=== PATIENT | male | born 1990 | race Two or more races ===

== ENCOUNTER 2024-09-15 15:23 | Inpatient (IN) | payer OTHER ==
[2024-09-15 15:41] VITALS: BMI 29.4
[2024-09-15] MEDS: SODIUM CHLORIDE 0.9% 500 ML INFUS.BAG IV ONE (16:58)
[2024-09-15 17:27] LABS: URINE APPEARANCE CLEAR; URINE BILIRUBIN 3+ (NEGATIVE); URINE COLOR DK YELLOW; URINE GLUCOSE (UA) NEGATIVE (NEGATIVE); URINE KETONE NEGATIVE (NEGATIVE); URINE LEUK ESTERASE NEGATIVE (NEGATIVE); URINE NITRITE NEGATIVE (NEGATIVE); URINE PROTEIN TRACE (NEGATIVE); URINE UROBILINOGEN 0.2 mg/dL (0.2-1.0)
[2024-09-15 17:37] LABS: ABSOLUTE IMMATURE GRANULOCYTES 0.02 x10^3/uL (0.0-0.031); BASOPHILS # 0.08 x10^3/uL (0.01-0.08); EOSINOPHIL % 3.2 % (0.8-7.0); EOSINOPHILS # 0.23 x10^3/uL (0.04-0.54); HEMATOCRIT 41.9 % (40.1-51.0); HEMOGLOBIN 12.5 g/dL (13.7-17.5); MCHC 29.8 g/dl (32.3-36.5); MEAN CELL VOLUME 66.6 fl (79.0-92.2); MEAN PLT VOLUME 11.7 fl (9.4-12.4); MONOCYTE # 0.86 x10^3/uL (0.30-0.82); MONOCYTE % 11.8 % (5.3-12.2); PLATELET COUNT # 308 x10^3/uL (163-337); RDW 16.3 % (12.0-15.6)
[2024-09-15 17:55] LABS: INR 1.04 (0.83-1.09); PROTHROMBIN TIME (PATIENT) 11.4 SEC (9.7-13.0)
[2024-09-15 17:58] LABS: ACTIVATED PTT 41.3 SECONDS (25.2-36.5)
[2024-09-15 18:15] LABS: POTASSIUM 3.9 mmol/L (3.5-5.1)
[2024-09-15 18:18] LABS: ALBUMIN 3.7 g/dl (3.4-5.0); BLOOD UREA NITROGEN 9.6 mg/dL (7-18)
[2024-09-15 18:21] LABS: CREATININE 1.1 mg/dL (0.55-1.3)
[2024-09-15 18:22] LABS: BILIRUBIN,TOTAL 9.4 mg/dL (0.2-1)
[2024-09-15 18:24] LABS: TOT PROT 7.8 g/dl (6.4-8.2)
[2024-09-15 18:56] LABS: HCV DIAGNOSTIC IN-HOUSE W/RFLX NON-REACTIVE (NONREACTIVE); HIV INTERPRETATION NEGATIVE (NEGATIVE)
[2024-09-15 20:34] LABS: BILIRUBIN,DIRECT 7.6 mg/dL (0.0-0.2)
[2024-09-15] MEDS: diphenhydrAMINE HCL 25 MG CAPSULE (FP) PO PRN (23:30)
[2024-09-15] MEDS: SODIUM CHLORIDE 1,000 ML IV SCH (23:42)
[2024-09-16] MEDS: ACETAMINOPHEN 1000 MG/100 ML BAG IVPB PRN (01:14)
[2024-09-16] MEDS: BENZOCAINE/MENTH/CETYLPYRD CL 1 EACH LOZENGE MM PRN (01:15)
[2024-09-16] MEDS: MOMETASONE FUROATE 220 MCG/IH INHALER IH SCH (09:08)
[2024-09-16 09:27] LABS: HEMATOCRIT 37.6 % (40.1-51.0); HEMOGLOBIN 11.3 g/dL (13.7-17.5); MCHC 30.1 g/dl (32.3-36.5); MEAN CELL VOLUME 66.8 fl (79.0-92.2); PLATELET COUNT # 271 x10^3/uL (163-337); RDW 15.9 % (12.0-15.6)
[2024-09-16 09:43] LABS: POTASSIUM 3.8 mmol/L (3.5-5.1)
[2024-09-16 09:46] LABS: BLOOD UREA NITROGEN 9.3 mg/dL (7-18); CALCIUM 8.5 mg/dL (8.5-10.1); MAGNESIUM 2.1 mg/dL (1.8-2.4)
[2024-09-16 09:49] LABS: BILIRUBIN,DIRECT 7.4 mg/dL (0.0-0.2); CREATININE 1.1 mg/dL (0.55-1.3); PHOSPHOROUS 3.3 mg/dL (2.5-4.9)
[2024-09-16 09:50] LABS: BILIRUBIN,TOTAL 8.7 mg/dL (0.2-1)
[2024-09-16 09:51] LABS: TOT PROT 6.5 g/dl (6.4-8.2)
[2024-09-16] MEDS: PANTOPRAZOLE 40 MG TABLET PO SCH (10:33)
[2024-09-16] MEDS ORDERED: ONDANSETRON 4 MG/2 ML VIAL IVPUSH PRN (13:26)
[2024-09-16] MEDS ORDERED: PROMETHAZINE HCL 25 MG/1 ML VIAL IVPB PRN (13:26)
[2024-09-16] MEDS ORDERED: MIDAZOLAM HCL 2 MG/2 ML SINGLE DOSE VIAL ONE (13:32)
[2024-09-16] MEDS ORDERED: ACETAMINOPHEN INJECTION 100 ML ONE (13:34)
[2024-09-16] MEDS: INDOMETHACIN 50 MG RECTAL SUPPOSITORY PR ONE (14:02)
[2024-09-16] MEDS ORDERED: ONDANSETRON 4 MG/2 ML VIAL ONE (17:07)
[2024-09-16] MEDS: LACTATED RINGERS SOLUTION 1,000 ML IV SCH ×2 (17:21→19:41)
[2024-09-16] MEDS ORDERED: ONDANSETRON 8 MG TABLET (FP) PO PRN (19:39)
[2024-09-16] MEDS: SIMETHICONE 80 MG TAB.CHEW (FP) PO PRN (20:02)
[2024-09-16] MEDS: ONDANSETRON *ODT* 4 MG TABLET SL PRN (20:03)
[2024-09-16] MEDS: KETOROLAC TROMETHAMINE 15 MG/ML VIAL IVPUSH ONE (20:03)
[2024-09-16] MEDS: MONTELUKAST NA 10 MG TABLET PO SCH (21:29)
[2024-09-16] MEDS: BENZONATATE 200 MG CAPSULE PO PRN (23:50)
[2024-09-17] MEDS: traMADol HCL 50 MG TABLET PO ONE
[2024-09-17] MEDS ORDERED: morphine CARPU-JECT 2 MG/1 ML DISP.SYRIN IVPUSH PRN (08:43)
[2024-09-17 09:54] LABS: HEMATOCRIT 38.2 % (40.1-51.0); HEMOGLOBIN 11.5 g/dL (13.7-17.5); MCHC 30.1 g/dl (32.3-36.5); MEAN CELL VOLUME 66.2 fl (79.0-92.2); PLATELET COUNT # 320 x10^3/uL (163-337); RDW 15.8 % (12.0-15.6)
[2024-09-17 10:33] LABS: ALBUMIN 3.1 g/dl (3.4-5.0); CALCIUM 9.5 mg/dL (8.5-10.1)
[2024-09-17 10:36] LABS: CREATININE 0.9 mg/dL (0.55-1.3); PHOSPHOROUS 3.6 mg/dL (2.5-4.9)
[2024-09-17 10:38] LABS: TOT PROT 6.8 g/dl (6.4-8.2)
[2024-09-17 10:43] LABS: BLOOD UREA NITROGEN 9.2 mg/dL (7-18)
[2024-09-17 10:51] LABS: BILIRUBIN,TOTAL 3.3 mg/dL (0.2-1)
[2024-09-17] MEDS: MAG HYDROX/AL HYDROX/SIMETH 30 ML UNIT-DOSE CUP PO PRN (11:36)
[2024-09-17] MEDS: KETOROLAC TROMETHAMINE 15 MG/ML VIAL IVPUSH PRN (13:00)
[2024-09-17] MEDS: guaiFENesin 600 MG TABLET.ER (FP) PO SCH (17:32)
[2024-09-17] MEDS: ACETAMINOPHEN 500 MG TABLET (FP) PO PRN (19:25)
[2024-09-17] MEDS: SIMETHICONE 80 MG TAB.CHEW (FP) PO ONE (20:21)
[2024-09-18] MEDS: IBUPROFEN 400 MG TABLET (FP) PO ONE (00:46)
[2024-09-18 09:32] LABS: HEMATOCRIT 43.1 % (40.1-51.0); HEMOGLOBIN 12.8 g/dL (13.7-17.5); MCHC 29.7 g/dl (32.3-36.5); MEAN CELL VOLUME 66.5 fl (79.0-92.2); PLATELET COUNT # 360 x10^3/uL (163-337); RDW 16.6 % (12.0-15.6)
[2024-09-18 09:47] LABS: POTASSIUM 3.8 mmol/L (3.5-5.1)
[2024-09-18 09:54] LABS: ALBUMIN 3.5 g/dl (3.4-5.0); BLOOD UREA NITROGEN 13.8 mg/dL (7-18); CALCIUM 9.6 mg/dL (8.5-10.1)
[2024-09-18 09:57] LABS: BILIRUBIN,TOTAL 2.8 mg/dL (0.2-1); CREATININE 1.1 mg/dL (0.55-1.3); TOT PROT 7.7 g/dl (6.4-8.2)
[2024-09-18] MEDS: LACTATED RINGERS SOLUTION 1,000 ML/1,000 ML INFUS.BAG IV SCH (10:45)
[2024-09-18] MEDS: TAMSULOSIN HCL 0.4 MG CAP PO ONE (15:49)
[2024-09-18] MEDS: POLYETHYLENE GLYCOL (HEALTHYLAX) 3350 17 GM PACKET PO SCH (21:50)
[2024-09-19 08:11] LABS: CARCINOEMBRYONIC ANTIGEN 32.1 ng/mL (0.0-4.7)
[2024-09-19] MEDS: TAMSULOSIN HCL 0.4 MG CAP PO SCH (09:10)
[2024-09-19] MEDS: SIMETHICONE 80 MG TAB.CHEW (FP) PO PRN (09:38)
[2024-09-19 10:11] LABS: HEMATOCRIT 42.1 % (40.1-51.0); HEMOGLOBIN 12.5 g/dL (13.7-17.5); MCHC 29.7 g/dl (32.3-36.5); MEAN PLT VOLUME 12.3 fl (9.4-12.4); PLATELET COUNT # 402 x10^3/uL (163-337); RDW 16.1 % (12.0-15.6)
[2024-09-19 10:39] LABS: POTASSIUM 3.9 mmol/L (3.5-5.1)
[2024-09-19 10:44] LABS: BLOOD UREA NITROGEN 12.3 mg/dL (7-18)
[2024-09-19 10:46] LABS: ALBUMIN 3.3 g/dl (3.4-5.0); CALCIUM 9.6 mg/dL (8.5-10.1); MAGNESIUM 2.3 mg/dL (1.8-2.4)
[2024-09-19 10:48] LABS: PHOSPHOROUS 3.5 mg/dL (2.5-4.9)
[2024-09-19 10:50] LABS: TOT PROT 7.6 g/dl (6.4-8.2)
[2024-09-20 09:40] LABS: POTASSIUM 4.2 mmol/L (3.5-5.1)
[2024-09-20 09:49] LABS: ABSOLUTE IMMATURE GRANULOCYTES 0.05 x10^3/uL (0.0-0.031); BASOPHILS # 0.08 x10^3/uL (0.01-0.08); EOSINOPHIL % 3.3 % (0.8-7.0); EOSINOPHILS # 0.39 x10^3/uL (0.04-0.54); HEMATOCRIT 39.4 % (40.1-51.0); HEMOGLOBIN 11.8 g/dL (13.7-17.5); MCHC 29.9 g/dl (32.3-36.5); MEAN CELL VOLUME 67.1 fl (79.0-92.2); MEAN PLT VOLUME 12.2 fl (9.4-12.4); MONOCYTE # 0.89 x10^3/uL (0.30-0.82); MONOCYTE % 7.6 % (5.3-12.2); PLATELET COUNT # 379 x10^3/uL (163-337); RDW 15.5 % (12.0-15.6)
[2024-09-20 10:08] LABS: CALCIUM 9.3 mg/dL (8.5-10.1)
[2024-09-20 10:09] LABS: ALBUMIN 3.1 g/dl (3.4-5.0); BLOOD UREA NITROGEN 11.9 mg/dL (7-18); MAGNESIUM 2.2 mg/dL (1.8-2.4)
[2024-09-20 10:12] LABS: PHOSPHOROUS 3.4 mg/dL (2.5-4.9)
[2024-09-20 10:14] LABS: BILIRUBIN,TOTAL 1.7 mg/dL (0.2-1); TOT PROT 7.2 g/dl (6.4-8.2)
[2024-09-20] MEDS: IRON SUCROSE INJECTION 200 MG in SODIUM CHLORIDE 100 ML IVPB ONE (17:19)
[2024-09-20 19:51] LABS: HCV DIAGNOSTIC IN-HOUSE W/RFLX NON-REACTIVE (NONREACTIVE)
[2024-09-21 08:34] LABS: HEMATOCRIT 39.4 % (40.1-51.0); HEMOGLOBIN 11.7 g/dL (13.7-17.5); MCHC 29.7 g/dl (32.3-36.5); MEAN CELL VOLUME 67.7 fl (79.0-92.2); MEAN PLT VOLUME 11.8 fl (9.4-12.4); PLATELET COUNT # 369 x10^3/uL (163-337); RDW 15.2 % (12.0-15.6)
[2024-09-21 08:56] LABS: POTASSIUM 4.4 mmol/L (3.5-5.1)
[2024-09-21 08:59] LABS: ALBUMIN 3.1 g/dl (3.4-5.0); BLOOD UREA NITROGEN 13.8 mg/dL (7-18); CALCIUM 9.4 mg/dL (8.5-10.1); MAGNESIUM 2.3 mg/dL (1.8-2.4)
[2024-09-21 09:56] LABS: PHOSPHOROUS 4.3 mg/dL (2.5-4.9)
[2024-09-21 10:11] LABS: BILIRUBIN,TOTAL 1.6 mg/dL (0.2-1)
[2024-09-21 10:12] LABS: TOT PROT 7.3 g/dl (6.4-8.2)
[2024-09-21] MEDS ORDERED: MIDAZOLAM HCL 2 MG/2 ML SINGLE DOSE VIAL ONE (10:35)
[2024-09-21] MEDS ORDERED: ONDANSETRON 4 MG/2 ML VIAL ONE (12:46)
[2024-09-21] MEDS: ONDANSETRON 4 MG/2 ML VIAL IVPUSH ONE (12:54)
[2024-09-21] MEDS ORDERED: SEVOFLURANE 250 ML BTL ONE (13:43)
[2024-09-22 10:14] LABS: HEMATOCRIT 39.8 % (40.1-51.0); HEMOGLOBIN 11.8 g/dL (13.7-17.5); MCHC 29.6 g/dl (32.3-36.5); MEAN CELL VOLUME 66.6 fl (79.0-92.2); MEAN PLT VOLUME 11.5 fl (9.4-12.4); PLATELET COUNT # 432 x10^3/uL (163-337); RDW 14.9 % (12.0-15.6)
[2024-09-22 10:36] LABS: POTASSIUM 4.1 mmol/L (3.5-5.1)
[2024-09-22 10:38] LABS: ALBUMIN 3.1 g/dl (3.4-5.0); CALCIUM 9.5 mg/dL (8.5-10.1)
[2024-09-22 10:40] LABS: MAGNESIUM 2.1 mg/dL (1.8-2.4)
[2024-09-22 10:43] LABS: BILIRUBIN,TOTAL 1.3 mg/dL (0.2-1); TOT PROT 7.6 g/dl (6.4-8.2)
[2024-09-22] MEDS: SODIUM CHLORIDE FOR INHALATION 3 ML VIAL.NEB IH ONE (11:45)
[2024-09-22] MEDS: FLUTICASONE PROP 0.05% 16 GM NASAL SPRAY NS SCH (16:10)
[2024-09-22] MEDS: PEG 3350/NA SULF BICARB CL/KCL 4000 ML SOLN.RECON PO ONE (16:11)
[2024-09-22] MEDS: BISACODYL 5 MG TABLET.DR (FP) PO ONE (16:11)
[2024-09-23 09:31] LABS: ABSOLUTE IMMATURE GRANULOCYTES 0.04 x10^3/uL (0.0-0.031); BASOPHILS # 0.07 x10^3/uL (0.01-0.08); EOSINOPHIL % 2.8 % (0.8-7.0); HEMATOCRIT 40.7 % (40.1-51.0); MCHC 29.5 g/dl (32.3-36.5); MEAN CELL VOLUME 67.8 fl (79.0-92.2); MONOCYTE # 0.82 x10^3/uL (0.30-0.82); MONOCYTE % 7.7 % (5.3-12.2); RDW 14.9 % (12.0-15.6)
[2024-09-23 09:35] LABS: INR 1.17 (0.83-1.09); PROTHROMBIN TIME (PATIENT) 12.9 SEC (9.7-13.0)
[2024-09-23 09:51] LABS: POTASSIUM 4.2 mmol/L (3.5-5.1)
[2024-09-23 10:02] LABS: CALCIUM 9.7 mg/dL (8.5-10.1)
[2024-09-23 10:03] LABS: ALBUMIN 3.2 g/dl (3.4-5.0); BLOOD UREA NITROGEN 20.1 mg/dL (7-18)
[2024-09-23 10:06] LABS: CREATININE 1.1 mg/dL (0.55-1.3)
[2024-09-23 10:07] LABS: BILIRUBIN,TOTAL 1.5 mg/dL (0.2-1); TOT PROT 7.6 g/dl (6.4-8.2)
[2024-09-23 11:35] VITALS: RESP 18
[2024-09-23 15:57] VITALS: BP 108/78; PULSE 76; TEMP 98.3
[2024-09-23 18:19] LABS: MEAN PLT VOLUME 11.6 fl (9.4-12.4); PLATELET COUNT # 437 x10^3/uL (163-337)
== END 2024-09-23 18:35 | disposition home or self-care (01) | DRG 435 ==
LOC: JER 15:23 → JERBED 20:06 → J6S 22:51
PROVIDERS: ADMIT Internal Medicine; ATTEND Internal Medicine
PROC: 0FB13ZX Excision of Right Lobe Liver, Percutaneous Approach, Diagnostic (ICD-10-PCS; 2024-09-18)
PROC: 0FJB8ZZ Inspection of Hepatobiliary Duct, Via Natural or Artificial Opening Endoscopic (ICD-10-PCS; principal; 2024-09-21 14:45)
PROC: 0DBK8ZZ Excision of Ascending Colon, Via Natural or Artificial Opening Endoscopic (ICD-10-PCS; 2024-09-23)
PROC: 0DJ08ZZ Inspection of Upper Intestinal Tract, Via Natural or Artificial Opening Endoscopic (ICD-10-PCS; 2024-09-23)
DX: C78.7 Secondary malignant neoplasm of liver and intrahepatic bile duct (principal); K83.1 Obstruction of bile duct; K85.90 Acute pancreatitis without necrosis or infection, unspecified; K91.89 Other postprocedural complications and disorders of digestive system; E78.5 Hyperlipidemia, unspecified; R74.8 Abnormal levels of other serum enzymes; K83.8 Other specified diseases of biliary tract; D12.2 Benign neoplasm of ascending colon; K21.9 Gastro-esophageal reflux disease without esophagitis; N20.0 Calculus of kidney
CPT/HCPCS: 0241U-QW; 36415; 47000; 71250-TC; 74170-TC; 74177-TC; 74330-TC; 76000-TC-FY; 76705-TC; 76942-TC; 80053; 81003; 82105; 82140; 82248; 82378; 82728; 83540; 83550; 83690; 83735; 84100; 85025; 85027; 85610; 85730; 86140; 86301; 86803; 86850; 86900; 86901; 87086; 87340; 87389; 87517; 88104; 88305-TC; 88307-TC; 88341-TC; 88342-TC; 93005; 93010; 94760; 99285-25; C1874; J0131; J1756; Q0162; Q9967